=== PATIENT | female | born 1980 | race American Indian/Alaskan Native ===

== ENCOUNTER 2018-04-11 02:28 | Inpatient (IN) | payer SELFPAY ==
[2018-04-11 04:30] LABS: Basophils # (Auto) 0.1 K/mm3 (0.0-0.1); Basophils % (Auto) 1.2 % (0.0-1.8); Hemoglobin 13.9 gm/dl (10.1-14.3); Lymphocytes # (Auto) 1.5 K/mm3 (1.2-5.4); Lymphocytes % (Auto) 32.1 % (13.4-35.0); Mean Corpuscular HGB Conc 34 % (30-34); Mean Corpuscular Hemoglobin 30 pg (28-32); Mean Corpuscular Volume 89 fl (79-97); Monocytes # (Auto) 0.4 K/mm3 (0.0-0.8); Platelet Count 341 K/mm3 (140-440); Red Cell Distribution Width 13.2 % (13.2-15.2)
--- NOTE | 2018-04-11 04:31 | Cat Scan Report ---
FINAL REPORT EXAM: CT HEAD/BRAIN WO CON HISTORY: neuro deficits < 6hrs or sx present upon awakening TECHNIQUE: CT imaging acquired through the head without intravenous contrast. Transaxial reformations are provided. PRIORS: None. FINDINGS: The ventricles, cisterns and sulci are normal. 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 No intraparenchymal or extra-axial mass, hemorrhage, or mass effect. Mcdonald and white-matter differentiation is within normal limits. Normal spherical shape of the globes. Paranasal sinuses and mastoid air cells are clear. No skull or facial fracture visualized. IMPRESSION: No acute intracranial abnormality.
[2018-04-11 04:43] LABS: INR 0.93 (0.87-1.13); Partial Thromboplastin Time 25.2 Sec. (24.2-36.6)
[2018-04-11 04:49] LABS: BUN/Creatinine Ratio 14; Blood Urea Nitrogen 11 mg/dL (7-17); Calcium 9.3 mg/dL (8.4-10.2); Hemolysis Index 15
--- NOTE | 2018-04-11 06:10 | XRay Report ---
FINAL REPORT EXAM: XR CHEST 1V AP HISTORY: neuro deficit TECHNIQUE: AP portable view(s) of the chest obtained. PRIORS: None. FINDINGS: No mediastinal shift. Cardiac silhouette is not enlarged. No pneumothorax, effusion, or focal pulmonary opacity identified. No acute skeletal findings. IMPRESSION: No acute pulmonary finding identified.
--- NOTE | 2018-04-11 07:31 | Emergency Department Report ---
- General Chief complaint: Weakness Stated complaint: SYNCOPE Time Seen by Provider: 04/11/18 06:49 Source: patient, EMS Mode of arrival: Stretcher Limitations: Physical Limitation - History of Present Illness Initial comments: Patient is a 37-year-old female that presents emergency room with worsening of right-sided weakness that started at 1:30 AM this morning. Patient states the weakness is on her right face right arm and right leg. Patient states she was in the shower and had to be helped to the floor and called EMS to be transported to the hospital. Patient states she had a hemorrhagic stroke in 2017 which left her with right-sided weakness however her weakness is worsening. Patient denies confusion. Patient denies syncope. Patient denies headache. Patient denies chest pain. Patient denies shortness of breath and diaphoresis. Patient denies fever or chills MD Complaint: focal weakness -: Sudden Location: RUE, RLE, R face Severity: moderate Severity scale (0 -10): 0 Consistency: constant Improves with: none Worsens with: none Associated Symptoms: denies: chest pain, confusion, dark stools, diaphoresis, dysuria, easy bruising, fever/chills, headaches, loss of appetite, nausea/ vomiting, myalgias, rash, shortness of breath, syncope - Related Data Home Medications Medication Instructions Recorded Confirmed Last Taken Gabapentin [Neurontin] 100 mg PO TID PRN 04/11/18 04/11/18 Unknown Lisinopril [Zestril] 10 mg PO DAILY 04/11/18 04/11/18 Unknown Simvastatin 20 mg PO DAILY 04/11/18 04/11/18 Unknown Allergies Allergy/AdvReac Type Severity Reaction Status Date / Time No Known Allergies Allergy Unverified 04/11/18 03:13 ED Review of Systems ROS: Stated complaint: SYNCOPE Other details as noted in HPI Constitutional: weakness. denies: chills, fever Eyes: denies: eye pain, eye discharge, vision change ENT: denies: ear pain, throat pain Respiratory: denies: cough, shortness of breath, wheezing Cardiovascular: denies: chest pain, palpitations Endocrine: no symptoms reported Gastrointestinal: denies: abdominal pain, nausea, diarrhea Genitourinary: denies: urgency, dysuria, discharge Musculoskeletal: denies: back pain, joint swelling, arthralgia Skin: denies: rash, lesions Neurological: weakness. denies: headache, paresthesias Psychiatric: denies: anxiety, depression Hematological/Lymphatic: denies: easy bleeding, easy bruising ED Past Medical Hx - Past Medical History Previous Medical History?: Yes Hx Hypertension: Yes Hx CVA: Yes (hemorrhagic 2017) Hx GERD: Yes Additional medical history: high cholestrol - Surgical History Past Surgical History?: Yes Additional Surgical History: etopic - Family History Family history: hypertension - Social History Smoking Status: Former Smoker Substance Use Type: None - Medications Home Medications: Home Medications Medication Instructions Recorded Confirmed Last Taken Type Gabapentin [Neurontin] 100 mg PO TID PRN 04/11/18 04/11/18 Unknown History Lisinopril [Zestril] 10 mg PO DAILY 04/11/18 04/11/18 Unknown History Simvastatin 20 mg PO DAILY 04/11/18 04/11/18 Unknown History ED Physical Exam - General Limitations: Physical Limitation General appearance: alert, in no apparent distress - Head Head exam: Present: atraumatic, normocephalic - Eye Eye exam: Present: normal appearance - ENT ENT exam: Present: mucous membranes moist - Neck Neck exam: Present: normal inspection - Respiratory Respiratory exam: Present: normal lung sounds bilaterally. Absent: respiratory distress - Cardiovascular Cardiovascular Exam: Present: regular rate, normal rhythm. Absent: systolic murmur, diastolic murmur, rubs, gallop - GI/Abdominal GI/Abdominal exam: Present: soft, normal bowel sounds - Extremities Exam Extremities exam: Present: normal inspection - Back Exam Back exam: Present: normal inspection - Neurological Exam Neurological exam: Present: alert, oriented X3 - Expanded Neurological Exam Expanded Patient oriented to: Present: person, place, time Speech: Present: fluid speech Cranial nerves: EOM's Intact: Normal, Tongue Deviation: Normal, Nystagmus: Normal, Facial Sensation: Normal, Facial Palsy with Forehead Movement: Normal, Facial Palsy without Forehead Movement: Normal Best Eye Response (Patricia): (4) open spontaneously Best Motor Response ([place]): (6) obeys commands Best Verbal Response (Patricia): (5) oriented [place] Total: 15 - Psychiatric Psychiatric exam: Present: normal affect, normal mood - Skin Skin exam: Present: warm, dry, intact, normal color. Absent: rash - Assessment Assessment Interval: Baseline - Level of Consciousness 1a. Level of Consciousness: alert/keenly responsive - LOC Questions 1b. LOC Questions: answers both correctly - LOC Command 1c. LOC Commands: performs tasks correctly - Best Gaze 2. Best Gaze: normal - Visual 3. Visual: no visual loss - Facial Palsy 4. Facial Palsy: normal symmetrical movement - Motor Arm 5b. Motor Arm Right: no drift 5a. Motor Arm Left: no drift - Motor Leg 6a. Motor Leg Left: no drift 6b. Motor Leg Right: no drift - Limb Ataxia 7. Limb Ataxia: absent - Sensory 8. Sensory: normal - Best Language 9. Best Language: no aphasia - Dysarthria 10. Dysarthria: normal - Extinction and Inattention 11. Extinction/Inattention: no abnormality - Scoring Total Score: 0 Stroke Severity: No Stroke Symptoms ED Course Vital Signs 04/11/18 04/11/18 04/11/18 03:20 04:53 07:00 Temperature 98.7 F Pulse Rate 85 80 Respiratory 18 13 13 Rate Blood Pressure 109/64 Blood Pressure 128/80 [Right] O2 Sat by Pulse 100 Oximetry 04/11/18 04/11/18 04/11/18 07:30 08:00 08:30 Temperature Pulse Rate 78 77 74 Respiratory 12 15 16 Rate Blood Pressure 114/71 118/77 108/57 Blood Pressure [Right] O2 Sat by Pulse Oximetry 04/11/18 04/11/18 04/11/18 09:00 09:30 10:00 Temperature Pulse Rate 71 97 H 71 Respiratory 21 23 12 Rate Blood Pressure 124/65 102/54 100/47 Blood Pressure [Right] O2 Sat by Pulse Oximetry 04/11/18 04/11/18 10:30 10:40 Temperature Pulse Rate 71 68 Respiratory 14 13 Rate Blood Pressure 94/55 94/55 Blood Pressure [Right] O2 Sat by Pulse Oximetry - Reevaluation(s) Reevaluation #1: Discussed plan of care and admission with patient. Patient agrees with admission plan of care. Discussed all results with patient. Patient states at this time all of her symptoms have resolved and she is back to her baseline weakness 04/11/18 08:04 - Consultations Consultation #1: brittney neurology will be consulted for patient. 04/11/18 07:31 neurology, Dr. martin returned call and consulted. Dr. martin to see pt. 04/11/18 07:47 Dr Martin saw pt and recommends admission to the hospital, MRI and an EEG 04/11/18 08:00 Consultation #2: Hospitalist consulted for admission. Hospitalist to assume care and admit patient. Bridge orders placed for hospitalist 04/11/18 08:13 ED Medical Decision Making - Lab Data Result diagrams: 04/11/18 04:14 04/11/18 04:14 - EKG Data -: EKG Interpreted by Me EKG shows normal: sinus rhythm, axis, intervals, QRS complexes, ST-T waves Rate: normal - Radiology Data Radiology results: report reviewed FINAL REPORT EXAM: XR CHEST 1V AP HISTORY: neuro deficit TECHNIQUE: AP portable view(s) of the chest obtained. PRIORS: None. FINDINGS: No mediastinal shift. Cardiac silhouette is not enlarged. No pneumothorax, effusion, or focal pulmonary opacity identified. No acute skeletal findings. IMPRESSION: No acute pulmonary finding identified. Transcribed By: LENI Dictated By: LIDIA GIL MD Electronically Authenticated By: LIDIA GIL MD Signed Date/Time: 04/11/18 0609 FINAL REPORT EXAM: CT HEAD/BRAIN WO CON HISTORY: neuro deficits lt; 6hrs or sx present upon awakening TECHNIQUE: CT imaging acquired through the head without intravenous contrast. Transaxial reformations are provided. PRIORS: None. FINDINGS: The ventricles, cisterns and sulci are normal. 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 No intraparenchymal or extra-axial mass, hemorrhage, or mass effect. Mcdonald and white-matter differentiation is within normal limits. Normal spherical shape of the globes. Paranasal sinuses and mastoid air cells are clear. No skull or facial fracture visualized. IMPRESSION: No acute intracranial abnormality. Transcribed By: LENI Dictated By: LIDIA GIL MD Electronically Authenticated By: LIDIA GIL MD Signed Date/Time: 04/11/18 0430 - Medical Decision Making Patient is a 37-year-old female that presents emergency room with worsening right-sided weakness. Patient states that the right-sided weakness worsened for about 6 hours and now has resolved. Patient was admitted to the hospitalist service for further evaluation treatment. Patient will require admission, MRI and EEG per neurology. - Differential Diagnosis tia, cva. weakness. sz. Critical Care Time: Yes Critical care attestation.: If time is entered above; I have spent that time in minutes in the direct care of this critically ill patient, excluding procedure time. Critical Care Time: 25 minutes with pt for cc time ED Disposition Clinical Impression: TIA (transient ischemic attack), Weakness Disposition: -09 OP ADMIT IP TO THIS HOSP Is pt being admited?: Yes Does the pt Need Aspirin: No Condition: Critical Time of Disposition: 08:06
--- NOTE | 2018-04-11 08:35 | History and Physical Report ---
History of Present Illness Date of examination: 04/11/18 Chief complaint: Worsening of right-sided weakness History of present illness: 37-year-old female with past medical history significant for hemorrhagic stroke with residual right-sided weakness, hyperlipidemia presented to the emergency department because of complaints of worsening weakness of the right side of her body. patient had hemorrhagic stroke with residual right sided weakness. Patient did have a change in consciousness, no slurred speech, or seizure activity. CT head was done in no acute changes. Dr. Manning to teleneurologist was consulted and recommended to admit and workup for TIA. No TPA needed. REVIEW OF SYSTEMS: GENERAL: no weight change, no fatigue, no fever HEAD: no head ache EYES: no blurry vision, no acute visual loss EARS: no hearing loss, no discharge, no earache NOSE: no stuffiness, no sneezing, no discharge MOUTH, THROAT AND NECK: no bleeding gums, no sore throat, no swollen neck CARDIAC: no palpitations, no dyspnea on exertion, no orthopnea, no PND, no edema , no chest pain RESPIRATORY: no shortness of breath, no wheeze, no cough, no sputum, no hemoptysis, no asthma GI: no decreased appetite, no nausea, no vomiting, no dysphagia, no diarrhea, no constipation, no abdominal pain URINARY: no change in frequency, no urgency, no polyuria, no hematuria, no incontinence MUSCULOSKELETAL: no muscle weakness, no pain, no joint stiffness NEUROLOGIC: As stated in the HPI. HEMATOLOGIC: no anemia, no easy bruising SKIN: no rashes ENDOCRINE: no heat/cold intolerance, no polyuria, no polydipsia, no thyroid problems, no diabetes PSYCHIATRIC: no anxiety, no depression, no suicidal ideations Past History Past Medical History: hyperlipidemia, stroke Past Surgical History: No surgical history Social history: full code. denies: smoking, alcohol abuse, prescription drug abuse, IV drug use Family history: no significant family history Medications and Allergies Allergies Allergy/AdvReac Type Severity Reaction Status Date / Time No Known Allergies Allergy Unverified 04/11/18 03:13 Home Medications Medication Instructions Recorded Confirmed Last Taken Type Gabapentin [Neurontin] 100 mg PO TID PRN 04/11/18 04/11/18 Unknown History Lisinopril [Zestril] 10 mg PO DAILY 04/11/18 04/11/18 Unknown History Simvastatin 20 mg PO DAILY 04/11/18 04/11/18 Unknown History Exam - Physical Exam Narrative exam: Not in cardiopulmonary distress. The patient appeared well nourished and normally developed. Vital signs as documented. Head exam is unremarkable. No scleral icterus . Neck is without jugular venous distension, thyromegaly, or carotid bruits. Lungs are clear to auscultation. Cardiac exam reveals regular rate and Rhythm. First and second heart sounds normal. No murmurs, rubs or gallops. Abdominal exam reveals normal bowel sounds, no masses, no organomegaly and no aortic enlargement. Extremities are nonedematous and both femoral and pedal pulses are normal. 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 Mild right-sided weakness both upper and lower extremities compared to the left. - Constitutional Vitals: Temp Pulse Resp BP Pulse Ox 98.7 F 85 18 128/80 100 04/11/18 03:20 04/11/18 03:20 04/11/18 03:20 04/11/18 03:20 04/11/18 03:20 Results - Labs CBC & Chem 7: 04/11/18 04:14 04/11/18 04:14 Labs: Laboratory Last Values WBC 4.6 K/mm3 (4.5-11.0) 04/11/18 04:14 RBC 4.60 M/mm3 (3.65-5.03) 04/11/18 04:14 Hgb 13.9 gm/dl (10.1-14.3) 04/11/18 04:14 Hct 41.0 % (30.3-42.9) 04/11/18 04:14 MCV 89 fl (79-97) 04/11/18 04:14 MCH 30 pg (28-32) 04/11/18 04:14 MCHC 34 % (30-34) 04/11/18 04:14 RDW 13.2 % (13.2-15.2) 04/11/18 04:14 Plt Count 341 K/mm3 (140-440) 04/11/18 04:14 Lymph % (Auto) 32.1 % (13.4-35.0) 04/11/18 04:14 [place] % (Auto) 9.0 % (0.0-7.3) H 04/11/18 04:14 Eos % (Auto) 1.0 % (0.0-4.3) 04/11/18 04:14 Baso % (Auto) 1.2 % (0.0-1.8) 04/11/18 04:14 Lymph # 1.5 K/mm3 (1.2-5.4) 04/11/18 04:14 [place] # 0.4 K/mm3 (0.0-0.8) 04/11/18 04:14 Eos # 0.0 K/mm3 (0.0-0.4) 04/11/18 04:14 Baso # 0.1 K/mm3 (0.0-0.1) 04/11/18 04:14 Seg Neutrophils % 56.7 % (40.0-70.0) 04/11/18 04:14 Seg Neutrophils # 2.6 K/mm3 (1.8-7.7) 04/11/18 04:14 PT 12.9 Sec. (12.2-14.9) 04/11/18 04:14 INR 0.93 (0.87-1.13) 04/11/18 04:14 APTT 25.2 Sec. (24.2-36.6) 04/11/18 04:14 Thrombin Time 16.8 Sec. (15.1-19.6) 04/11/18 04:14 Sodium 140 mmol/L (137-145) 04/11/18 04:14 Potassium 4.0 mmol/L (3.6-5.0) 04/11/18 04:14 Chloride 100.4 mmol/L (98-107) 04/11/18 04:14 Carbon Dioxide 28 mmol/L (22-30) 04/11/18 04:14 Anion Gap 16 mmol/L 04/11/18 04:14 BUN 11 mg/dL (7-17) 04/11/18 04:14 Creatinine 0.8 mg/dL (0.7-1.2) 04/11/18 04:14 Estimated GFR > 60 ml/min 04/11/18 04:14 BUN/Creatinine Ratio 14 % 04/11/18 04:14 Glucose 115 mg/dL (65-100) H 04/11/18 04:14 Calcium 9.3 mg/dL (8.4-10.2) 04/11/18 04:14 Troponin T < 0.010 ng/mL (0.00-0.029) 04/11/18 04:14 HCG, Qual Negative (Negative) 04/11/18 04:14 Assessment and Plan Assessment and plan: 37-year-old female with past medical history significant for hemorrhagic stroke with residual right-sided weakness presented to the emergency department complaining of worsening of right-sided weakness that started around 2 AM this morning. Telemetry urologist was consulted and recommended to admit and workup for TIA History of hemorrhagic stroke with residual right-sided weakness TIA Hyperlipidemia - MRI/MRA, carotid Doppler -Continue statin - No aspirin or Plavix because of history of hemorrhagic stroke Hypertension - Currently within normal limits - Held BP meds DVT prophylaxis - SCDs because of history of hemorrhagic stroke Disposition - Admit to telemetry floor
[2018-04-11] MEDS ORDERED: MILK OF MAGNESIA PO PRN (08:46)
[2018-04-11] MEDS ORDERED: SODIUM CHLORIDE FLUSH SYRINGE 10 ML IV PRN (08:46)
[2018-04-11] MEDS ORDERED: DULCOLAX PR PRN (08:46)
[2018-04-11] MEDS ORDERED: TYLENOL PO PRN (08:46)
[2018-04-11] MEDS ORDERED: ZOFRAN IV PRN (09:00)
[2018-04-11] MEDS ORDERED: PHENERGAN PR PRN (09:00)
[2018-04-11] MEDS ORDERED: REGLAN PO PRN (09:00)
[2018-04-12 07:53] LABS: Chol/HDL Ratio 2.75 %
--- NOTE | 2018-04-12 11:41 | Magnetic Resonance Report ---
MRI OF THE BRAIN WITHOUT CONTRAST: HISTORY: TIA PROCEDURE: Multiplanar, multisequence MR imaging of the brain without IV contrast was performed. FINDINGS: The CT dated 04/11/18 was reviewed. An approximate 1.3 cm signal abnormality is identified in the left thalamus. There is hemosiderin deposition in this area on the T2-weighted images consistent with chronic sequela of a left thalamic hemorrhage. The remaining brain parenchyma is within normal limits on all sequences. No evidence for acute ischemia, hemorrhage or mass. No extra-axial fluid collection. The midline structures are central. The basal cisterns are patent. Normal ventricular size. The orbital cavities and sella turcica demonstrate no abnormality. The visualized paranasal sinuses and mastoid air cells are well aerated. 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 No acute intracranial process is appreciated.
--- NOTE | 2018-04-12 11:42 | Magnetic Resonance Report ---
MRA HEAD WITHOUT CONTRAST HISTORY: TIA. [id number] imaging with MIP reformations of the [place] of [place] is submitted. The arteries appear widely patent and free of hemodynamically significant stenosis, aneurysm or dissection. IMPRESSION: Unremarkable MRA head.
--- NOTE | 2018-04-12 12:07 | Discharge Summary ---
Providers - Providers Date of Admission: 04/11/18 09:28 Attending physician: ADRIANA MAGAÑA MD 04/11/18 Consult to Physician [CONS] Routine Comment: Consulting Provider: MARSHA BRITO Physician Instructions: Reason For Exam: Worsening of right sided weaknwss 04/11/18 08:46 Consult to Case Management [CONS] Routine Services Needed at Discharge: Physical Therapy Notified:: MOTOR POWER CONNECTORrisk management director Therapy Evaluate and Treat [CONS] Routine Comment: Reason For Exam: Neuro deficits Physical Therapy Evaluation and Treat [CONS] Routine Comment: Reason For Exam: Neuro deficits Primary care physician: SHIPPING/RECEIVING CLERK Hospitalization Reason for admission: Worsening of right sided weakness Condition: Critical Disposition: DC-01 TO HOME OR SELFCARE Time spent for discharge: 32 minutes - Discharge Diagnoses (1) TIA (transient ischemic attack) Status: Acute (2) Weakness Status: Acute Core Measure Documentation - Palliative Care Palliative Care/ Comfort Measures: Not Applicable - Core Measures Any of the following diagnoses?: history only (CVA) Exam - Physical Exam Narrative exam: Not in cardiopulmonary distress. The patient appeared well nourished and normally developed. Vital signs as documented. Head exam is unremarkable. No scleral icterus . Neck is without jugular venous distension, thyromegaly, or carotid bruits. Lungs are clear to auscultation. Cardiac exam reveals regular rate and Rhythm. First and second heart sounds normal. No murmurs, rubs or gallops. Abdominal exam reveals normal bowel sounds, no masses, no organomegaly and no aortic enlargement. Extremities are nonedematous and both femoral and pedal pulses are normal. 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 Mild right-sided weakness both upper and lower extremities compared to the left. - Constitutional Vitals: Temp Pulse Resp BP Pulse Ox 98.3 F 76 16 112/72 95 04/12/18 08:16 04/12/18 08:16 04/12/18 08:16 04/12/18 08:16 04/12/18 08:53 Plan Activity: advance as tolerated Weight Bearing Status: Weight Bear as Tolerated Diet: low cholesterol, low salt Additional Instructions: F/U at [facility] in 1-2 weeks. Keep appointment with your neurologist. Follow up with: PRIMARY MD KEYON [Primary Care Provider] - 7 Days
[2018-04-12 13:53] VITALS: BP 133/84
--- NOTE | 2018-04-12 14:34 | Consultation ---
History of Present Illness Consult date: 04/12/18 Requesting physician: ADRIANA MAGAÑA Reason for Consult: TIA History of present illness: 37 year old right handed female with history of hypertension, and hemorrhagic stroke in 2016, presented to ER on 04/11 with acute right sided weakness. The patient has residual right hemiparesis from her stroke last year. As she was taking a shower she noted a sensation of weakness on the right, working its way down from head to foot. This sensation persisted for 6 hours before resolving. She had no associated headache, vision problems, sweating, palpitations, vertigo or nausea. Currently she feels back to baseline. This includes a hyperesthetic sensation on her right side, with weakness mostly in right hand and foot. Mother had multiple strokes, beginning in her 30's. [address] and MRI/MRA reveal the stable old left thalamic hemorrhagic infarct, with no new hemorrhage or ischemic deficit. Past History Past Medical History: hypertension, hyperlipidemia, stroke Past Surgical History: No surgical history Social history: full code. denies: smoking, alcohol abuse, prescription drug abuse, IV drug use Family history: diabetes, hypertension, stroke Medications and Allergies Allergies Allergy/AdvReac Type Severity Reaction Status Date / Time No Known Allergies Allergy Unverified 04/11/18 03:13 Home Medications Medication Instructions Recorded Confirmed Last Taken Type Gabapentin [Neurontin] 100 mg PO TID PRN 04/11/18 04/11/18 Unknown History Lisinopril [Zestril] 10 mg PO DAILY 04/11/18 04/11/18 Unknown History Simvastatin 20 mg PO DAILY 04/11/18 04/11/18 Unknown History Active Meds: Active Medications Acetaminophen (Tylenol) 650 mg PO Q4H PRN PRN Reason: Pain, Mild (1-3) Atorvastatin Calcium (Lipitor) 40 mg PO QHS TOBY Last Admin: 04/11/18 21:13 Dose: 40 mg Bisacodyl (Dulcolax) 10 mg AR QDAY PRN PRN Reason: Constipation Magnesium Hydroxide (Milk Of Magnesia) 30 ml PO Q4H PRN PRN Reason: Constipation Metoclopramide HCl (Reglan) 10 mg PO Q6H PRN PRN Reason: Nausea And Vomiting Ondansetron HCl (Zofran) 4 mg IV Q8H PRN PRN Reason: Nausea And Vomiting Promethazine HCl (Phenergan) 25 mg AR Q6H PRN PRN Reason: Nausea And Vomiting Sodium Chloride (Sodium Chloride Flush Syringe 10 Ml) 10 ml IV PRN PRN PRN Reason: LINE FLUSH Review of Systems Constitutional: weakness, no weight loss, no weight gain, no fever, no fatigue Ears, nose, mouth and throat: no tinnitis, no decreased hearing, no nasal congestion Cardiovascular: no chest pain, no orthopnea, no palpitations, no rapid/ irregular heart beat, no edema, no syncope, no lightheadedness, no shortness of breath Respiratory: no cough, no congestion Gastrointestinal: no abdominal pain, no nausea, no vomiting, no diarrhea Musculoskeletal: arm numbness/tingling, leg numbness/tingling, muscle weakness, no neck pain Integumentary: no rash Neurological: weakness, numbness, tingling, no parathesias, no seizures, no syncope, no ataxia, no vertigo, no headaches Physical Examination - Vital Signs Vital Signs: Vital Signs Temp Pulse Resp BP Pulse Ox 98.7 F 85 18 128/80 100 04/11/18 03:20 04/11/18 03:20 04/11/18 03:20 04/11/18 03:20 04/11/18 03:20 - Physical Exam Narrative exam: Awake and alert. In no distress. HEENT - normocephalic. no inflammation or lesions. neck - supple. Chest - clear to auscultation. Heart - reg. rate. normal S-1, S-2 Abdomen - soft, nontender. Extremities - no CCE Neurologic exam - speech fluent, relates history well. CN's - EOMs full, face symmetric, tongue midline. V-1 thru V-3 with hyperesthesia on the right. Hearing intact. Motor - 5/5 on the left. On the right: deltoids 4+/5, finger extensors - 3/ 5 right iliopsoas - 4+/5. foot dorsiflexors - 4/5 Reflexes - +2 on right, +1 on left. Sensory - hyperesthesia to touch right upper and lower extremity. Cerebellar - athetoid movements of right hand and fingers. FTN, Emeka, and FFM, difficult on the rt. normal on left. Gait with mild circumduction. - Assessment Assessment Interval: Baseline - Level of Consciousness 1a. Level of Consciousness: alert/keenly responsive - LOC Questions 1b. LOC Questions: answers both correctly - LOC Command 1c. LOC Commands: performs tasks correctly - Best Gaze 2. Best Gaze: normal - Visual 3. Visual: no visual loss - Facial Palsy 4. Facial Palsy: normal symmetrical movement - Motor Arm 5b. Motor Arm Right: no drift - Motor Leg 6a. Motor Leg Left: no drift - Limb Ataxia 7. Limb Ataxia: absent - Sensory 8. Sensory: normal - Best Language 9. Best Language: no aphasia - Dysarthria 10. Dysarthria: normal - Extinction and Inattention 11. Extinction/Inattention: no abnormality Results - Laboratory Findings CBC and BMP: 04/11/18 04:14 04/11/18 04:14 Abnormal Lab Findings: Abnormal Labs 04/11/18 04/11/18 04:14 04:14 Crawford % (Auto) 9.0 H Glucose 115 H Assessment and Plan 37 year old female with history of hypertension and left thalamic hemorrhage presented with worsening right weakness on 04/11/18. This resolved in 6 hours. Imaging studies have revealed no new pathology or ischemic disease. The area of prior hemorrhage is stable. The patient has an appointment with her neurologist in early Oct. and will describe this event. She is not on aspirin. Plan - Maintain on atorvastatin. Aspirin 81 mg daily.
[2018-04-13] MEDS ORDERED: BABY ASPIRIN PO SCH (10:00)
== END 2018-04-12 15:43 | disposition home or self-care (01) | DRG 69 ==
LOC: ED 02:28 → 4A 09:28
PROVIDERS: ADMIT Internal Medicine; ATTEND Internal Medicine
DX: G45.9 Transient cerebral ischemic attack, unspecified (principal); E78.5 Hyperlipidemia, unspecified; K21.9 Gastro-esophageal reflux disease without esophagitis; E78.00 Pure hypercholesterolemia, unspecified; I10 Essential (primary) hypertension; I69.351 Hemiplegia and hemiparesis following cerebral infarction affecting right dominant side; Z79.899 Other long term (current) drug therapy; Z82.3 Family history of stroke; Z83.3 Family history of diabetes mellitus; Z82.49 Family history of ischemic heart disease and other diseases of the circulatory system; Z87.891 Personal history of nicotine dependence
CPT/HCPCS: 36415; 70450; 70544; 70551; 71045; 80048; 80061; 82962; 84484; 84703; 85025; 85610; 85670; 85730; 93005; 93010; 93880; A9270-GY